=== PATIENT | female | born 1960 | race Caucasian/White ===

== ENCOUNTER 2018-02-26 07:06 | Day surgery (SDC) | payer OTHER ==
[2018-02-25 12:42] VITALS: BMI 42.3
[2018-02-26] MEDS ORDERED: LIDOCAINE HCL/PF 2% SDV 5ML VIAL ONE (07:58)
[2018-02-26] MEDS ORDERED: PROPOFOL 20 ML ONE ×3 (07:58)
[2018-02-26 08:44] VITALS: TEMP 97.7
[2018-02-26 09:47] VITALS: BP 118/58; PULSE 68
--- NOTE | 2018-02-27 12:26 | PATH ---
Surgical Pathology Report Patient Name: AINSLEY HWANG [facility]. Rec. #: [id number] /Age/Gender: 1960 (Age: 57) / F Account: [id number] Location: U-ENDOSCOPY Taken: 02/26/2018 Received: 02/26/2018 Reported: 02/27/2018 Physicians: Krishna Lazo M.D. Specimen(s) Received A: POLYP TRANSVERSE COLON B: POLYP CECUM Clinical History Screening Postoperative diagnosis: Colon polyps, diverticulosis Final Diagnosis A. TRANSVERSE COLON, POLYPS, BIOPSY: TUBULAR ADENOMA. COLONIC MUCOSA WITH PROMINENT LYMPHOID AGGREGATES. B. CECUM, POLYPS, BIOPSY: TUBULAR ADENOMA(S). Electronically Signed Susan Mathis M.D. Gross Description A. Received in formalin, labeled "polyps transverse colon" are 4 doll, irregular portions of soft tissue ranging from 0.1-0.3 cm. in greatest dimension. The specimens are submitted in toto in one cassette. B. Received in formalin labeled "polyps cecum," is a 0.8 x 0.8 x 0.2 cm aggregate of doll soft tissue fragments. The formalin is filtered and the specimen is entirely submitted in one cassette. 02/26/2018 saudi02/26/2018
== END 2018-02-26 09:48 | disposition home or self-care (01) ==
LOC: JASU-ENDO 07:06
PROVIDERS: ATTEND Internal Medicine Gastroenterology
PROC: 0DBL8ZX Excision of Transverse Colon, Via Natural or Artificial Opening Endoscopic, Diagnostic (ICD-10-PCS; 2018-02-26)
PROC: 0DBH8ZX Excision of Cecum, Via Natural or Artificial Opening Endoscopic, Diagnostic (ICD-10-PCS; principal; 2018-02-26 08:00)
DX: Z12.11 Encounter for screening for malignant neoplasm of colon (principal); D12.0 Benign neoplasm of cecum; D12.3 Benign neoplasm of transverse colon; K57.30 Diverticulosis of large intestine without perforation or abscess without bleeding
CPT/HCPCS: 88305-TC

== ENCOUNTER 2021-06-07 05:01 | Day surgery (SDC) | payer OTHER ==
[2021-06-06 14:40] VITALS: BMI 38.9
[2021-06-07 10:42] VITALS: TEMP 98
[2021-06-07 11:17] VITALS: BP 129/69; PULSE 57
== END 2021-06-07 11:17 | disposition home or self-care (01) ==
LOC: JASU-ENDO 05:01
PROVIDERS: ATTEND Internal Medicine Gastroenterology
PROC: 0DBL8ZX Excision of Transverse Colon, Via Natural or Artificial Opening Endoscopic, Diagnostic (ICD-10-PCS; principal; 2021-06-07 10:00)
DX: Z12.11 Encounter for screening for malignant neoplasm of colon (principal); Z86.010 Personal history of colon polyps; K57.30 Diverticulosis of large intestine without perforation or abscess without bleeding; K64.8 Other hemorrhoids; D12.3 Benign neoplasm of transverse colon